=== PATIENT | female | born 1935 | race Caucasian/White ===

== ENCOUNTER 2017-09-27 12:51 | Inpatient (IN) | payer MEDICARE, OTHER, MEDICAID ==
[2017-09-27 14:08] LABS: ADD MAN DIFF? NO
[2017-09-27] MEDS: CEFEPIME 2GM/50 ML (PMX) 50 ML IVPB (14:10)
[2017-09-27 14:11] LABS: BASOPHILS % 0.3 % (0.0-2.0); HEMATOCRIT 36.8 % (37.0-47.0); LYMPHOCYTES # 1.4 10^3/ul (0.8-2.9); LYMPHOCYTES % 19.5 % (15.0-51.0); MEAN CORPUSCULAR HEMOGLOBIN 27.2 pg (29.0-33.0); MEAN CORPUSCULAR HGB CONC 32.6 g/dl (32.0-37.0); MEAN CORPUSCULAR VOLUME 83.4 fl (82.0-101.0); MEAN PLATELET VOLUME 11.7 fl (7.4-10.4); MONOCYTE # 0.4 10^3/ul (0.3-0.9); MONOCYTES % 6.2 % (0.0-11.0); NEUTROPHIL # 5.3 10^3/ul (1.6-7.5); NEUTROPHILS % 73.7 % (39.0-77.0); PLATELET COUNT 202 10^3/UL (140-415); RED BLOOD COUNT 4.41 10^6/ul (4.20-5.40); RED CELL DISTRIBUTION WIDTH 15.8 % (11.5-14.5)
[2017-09-27 14:11] LABS: WHITE BLOOD COUNT 7.1 10^3/ul (4.8-10.8)
[2017-09-27] MEDS: SODIUM CHLORIDE 0.9% 1L BAG IV* (14:15)
[2017-09-27 14:31] LABS: ALANINE AMINOTRANSFERASE 28 IU/L (13-69); ALBUMIN 3.6 g/dl (3.3-4.9); ALBUMIN/GLOBULIN RATIO 1.05; ALKALINE PHOSPHATASE 58 IU/L (42-121); ANION GAP 17 (8-16); ASPARTATE AMINO TRANSFERASE 31 IU/L (15-46); BILIRUBIN,INDIRECT 0.1 mg/dl (0-1.1); BILIRUBIN,TOTAL 0.1 mg/dl (0.2-1.3); BLOOD UREA NITROGEN 17 mg/dl (7-20); CALCIUM 8.8 mg/dl (8.4-10.2); CARBON DIOXIDE 24 mmol/L (21-31); CHLORIDE 100 mmol/L (97-110); CREATININE 0.69 mg/dl (0.44-1.00); GLUCOSE 117 mg/dl (70-220); POTASSIUM 3.2 mmol/L (3.5-5.1); SODIUM 138 mmol/L (135-144)
[2017-09-27 14:34] LABS: LACTIC ACID 2.5 mmol/L (0.5-2.0)
[2017-09-27 14:34] LABS: INR 0.99; PROTIME 13.2 Sec (11.9-14.9)
[2017-09-27 14:35] LABS: PARTIAL THROMBOPLASTIN TIME 40.3 Sec (25.0-35.0)
[2017-09-27 14:39] LABS: ADD UMIC YES; UR AMORPHOUS CRYSTAL FEW /HPF (NONE SEEN); UR ASCORBIC ACID NEGATIVE (NEGATIVE); UR BACTERIA FEW /HPF (NONE SEEN); UR BILIRUBIN (Dip) NEGATIVE (NEGATIVE); UR BLOOD (Dip) 2+ mg/dL (NEGATIVE); UR CLARITY SLIGHTLY CLOUDY (CLEAR); UR COLOR YELLOW (YELLOW); UR GLUCOSE (Dip) NEGATIVE (NEGATIVE); UR KETONES (Dip) NEGATIVE (NEGATIVE); UR LEUKOCYTE ESTERASE (Dip) NEGATIVE Leu/ul (NEGATIVE); UR NITRITE (Dip) NEGATIVE (NEGATIVE); UR RBC 40 /HPF (0-5); UR SPECIFIC GRAVITY (Dip) 1.013 (1.003-1.030); UR TOTAL PROTEIN (Dip) 1+ mg/dl (NEGATIVE); UR UROBILINOGEN (Dip) NEGATIVE (NEGATIVE); UR WBC 2 /HPF (0-5)
[2017-09-27 14:42] LABS: TROPONIN-I < 0.012 ng/ml (0.00-0.12)
[2017-09-27] MEDS: VANCOMYCIN 1 GM (PMX) 250 ML IVPB (15:39)
[2017-09-27 16:43] LABS: LACTIC ACID 2.7 mmol/L (0.5-2.0)
[2017-09-27] MEDS: SOD CHLORIDE 0.9% 1,000 ML IV (17:31)
[2017-09-27] MEDS: LACTATED RINGER'S 1,000 ML IV (17:38)
[2017-09-27] MEDS ORDERED: DOCUSATE SODIUM 100 MG CAP PO (18:00)
[2017-09-27] MEDS ORDERED: NA PHOSPHATE/BIPHOS 133 ML ENEMA PR (18:00)
[2017-09-27] MEDS ORDERED: NACL 0.9% 3 ML SYG IV (18:00)
[2017-09-27] MEDS ORDERED: HYDROCODONE/APAP (5/325) TAB PO (18:00)
[2017-09-27] MEDS ORDERED: ONDANSETRON 4 MG INJ IV (18:00)
[2017-09-27] MEDS ORDERED: hydrALAzine 20 MG INJ IV (18:00)
[2017-09-27] MEDS ORDERED: LORAZEPAM 2 MG INJ IV (18:00)
[2017-09-27] MEDS ORDERED: MAGNESIUM HYDROXIDE 30ML CUP PO (18:00)
[2017-09-27] MEDS ORDERED: ACETAMINOPHEN 325 MG TAB PO ×2 (18:00)
[2017-09-27] MEDS ORDERED: morphine 2 MG INJ IV (18:00)
[2017-09-27] MEDS ORDERED: NITROGLYCERIN (SL) 0.4 MG TAB SL (18:00)
[2017-09-27] MEDS ORDERED: GLUCAGON 1 MG INJ IM (19:30)
[2017-09-27] MEDS ORDERED: GLUCOSE GEL 15 GRAM TUBE PO ×2 (19:30)
[2017-09-27] MEDS ORDERED: DEXTROSE 50% 50 ML SYRINGE IV ×2 (19:30)
[2017-09-27] MEDS ORDERED: GLUCOSE GEL 15 GRAM TUBE BUCCAL (19:30)
[2017-09-27] MEDS: SOD CHLORIDE 0.45% 1,000 ML IV (19:42)
[2017-09-27 19:50] LABS: LACTIC ACID 2.2 mmol/L (0.5-2.0)
[2017-09-27 20:03] LABS: FREE T4 (FREE THYROXINE) 1.62 ng/dl (0.85-1.93)
[2017-09-27] MEDS: OSELTAMIVIR 75 MG CAP PO (20:15)
[2017-09-27] MEDS: HEPARIN 5,000 UNIT/0.5 ML VIAL SC (20:17)
[2017-09-27] MEDS: INSULIN ASPART [NOVOLOG] 3 ML PEN SC (20:22)
[2017-09-27 23:05] LABS: LACTIC ACID 2.5 mmol/L (0.5-2.0)
[2017-09-28] MEDS: INSULIN ASPART [NOVOLOG] 3 ML PEN SC ×6 (01:17→21:15)
[2017-09-28] MEDS: ACCU-CHEK XX (02:00)
[2017-09-28 02:38] LABS: LACTIC ACID 1.8 mmol/L (0.5-2.0)
[2017-09-28 06:47] LABS: ADD MAN DIFF? NO
[2017-09-28 06:48] LABS: WHITE BLOOD COUNT 4.8 10^3/ul (4.8-10.8)
[2017-09-28 06:48] LABS: BASOPHILS % 0.2 % (0.0-2.0); EOSINOPHILS % 0.8 % (0.0-7.0); HEMATOCRIT 32.2 % (37.0-47.0); HEMOGLOBIN 10.4 g/dl (12.0-16.0); LYMPHOCYTES # 1.6 10^3/ul (0.8-2.9); LYMPHOCYTES % 32.5 % (15.0-51.0); MEAN CORPUSCULAR HEMOGLOBIN 27.4 pg (29.0-33.0); MEAN CORPUSCULAR HGB CONC 32.3 g/dl (32.0-37.0); MEAN CORPUSCULAR VOLUME 84.7 fl (82.0-101.0); MEAN PLATELET VOLUME 11.3 fl (7.4-10.4); MONOCYTE # 0.3 10^3/ul (0.3-0.9); MONOCYTES % 6.3 % (0.0-11.0); NEUTROPHIL # 2.9 10^3/ul (1.6-7.5); PLATELET COUNT 163 10^3/UL (140-415); RED CELL DISTRIBUTION WIDTH 15.6 % (11.5-14.5)
[2017-09-28 07:15] LABS: LACTIC ACID 1.3 mmol/L (0.5-2.0)
[2017-09-28 07:17] LABS: ANION GAP 12 (8-16); BLOOD UREA NITROGEN 14 mg/dl (7-20); CALCIUM 8.3 mg/dl (8.4-10.2); CARBON DIOXIDE 28 mmol/L (21-31); CHLORIDE 104 mmol/L (97-110); CREATININE 0.51 mg/dl (0.44-1.00); GLUCOSE 121 mg/dl (70-220); MAGNESIUM 1.5 mg/dl (1.7-2.5); PHOSPHORUS 3.7 mg/dl (2.5-4.9); POTASSIUM 3.3 mmol/L (3.5-5.1); SODIUM 141 mmol/L (135-144)
[2017-09-28 07:18] LABS: CHOLESTEROL 93 mg/dl (100-200)
[2017-09-28 07:18] LABS: CHOL/HDL RATIO 3.4 RATIO; HDL CHOLESTEROL 27 mg/dl (33-92); LDL CHOLESTEROL,CALCULATED 43 mg/dl; TRIGLYCERIDES 116 mg/dl (0-149)
[2017-09-28 08:06] LABS: HEMOGLOBIN A1C 5.2 % (0-5.9)
[2017-09-28 08:21] LABS: LACTIC ACID 1.2 mmol/L (0.5-2.0)
[2017-09-28] MEDS: SOD CHLORIDE 0.45% 1,000 ML IV ×2 (08:21→20:53)
[2017-09-28] MEDS: OSELTAMIVIR 75 MG CAP PO ×2 (09:36→20:52)
[2017-09-28] MEDS: DONEPEZIL 10 MG TAB PO (09:36)
[2017-09-28] MEDS: HEPARIN 5,000 UNIT/0.5 ML VIAL SC ×2 (09:37→20:53)
[2017-09-28 12:08] LABS: LACTIC ACID 3.8 mmol/L (0.5-2.0)
[2017-09-28] MEDS: POTASSIUM CHLORIDE (SR) 20 MEQ TAB PO (13:48)
[2017-09-28] MEDS: MAGNESIUM SULFATE 2 GM/50 ML 50 ML IVPB (13:48)
[2017-09-28 15:19] LABS: LACTIC ACID 2.2 mmol/L (0.5-2.0)
[2017-09-28 16:10] LABS: LACTIC ACID 1.6 mmol/L (0.5-2.0)
[2017-09-28 18:07] LABS: LACTIC ACID 1.1 mmol/L (0.5-2.0)
[2017-09-28] MEDS: ALBUTEROL/IPRATROPIUM (NEB) 3 ML AMP HHN (21:04)
[2017-09-28] MEDS: GUAIFENESIN/CODEINE 5ML CUP PO (21:17)
[2017-09-28 22:57] LABS: LACTIC ACID 2.6 mmol/L (0.5-2.0)
[2017-09-29] MEDS: INSULIN ASPART [NOVOLOG] 3 ML PEN SC ×6 (01:00→21:16)
[2017-09-29 01:58] LABS: LACTIC ACID 1.6 mmol/L (0.5-2.0)
[2017-09-29] MEDS: ACCU-CHEK XX (02:00)
[2017-09-29 08:17] LABS: ADD MAN DIFF? NO
[2017-09-29 08:33] LABS: BASOPHILS % 0.2 % (0.0-2.0); EOSINOPHILS # 0.1 10^3/ul (0.0-0.5); EOSINOPHILS % 1.9 % (0.0-7.0); HEMATOCRIT 29.2 % (37.0-47.0); HEMOGLOBIN 9.6 g/dl (12.0-16.0); LYMPHOCYTES # 1.9 10^3/ul (0.8-2.9); LYMPHOCYTES % 44.8 % (15.0-51.0); MEAN CORPUSCULAR HEMOGLOBIN 27.6 pg (29.0-33.0); MEAN CORPUSCULAR HGB CONC 32.9 g/dl (32.0-37.0); MEAN CORPUSCULAR VOLUME 83.9 fl (82.0-101.0); MEAN PLATELET VOLUME 11.4 fl (7.4-10.4); MONOCYTE # 0.4 10^3/ul (0.3-0.9); MONOCYTES % 8.9 % (0.0-11.0); NEUTROPHIL # 1.9 10^3/ul (1.6-7.5); NEUTROPHILS % 43.7 % (39.0-77.0); PLATELET COUNT 186 10^3/UL (140-415); RED BLOOD COUNT 3.48 10^6/ul (4.20-5.40)
[2017-09-29 08:33] LABS: WHITE BLOOD COUNT 4.3 10^3/ul (4.8-10.8)
[2017-09-29 08:48] LABS: ANION GAP 10 (8-16); BLOOD UREA NITROGEN 14 mg/dl (7-20); CALCIUM 7.9 mg/dl (8.4-10.2); CARBON DIOXIDE 29 mmol/L (21-31); CHLORIDE 104 mmol/L (97-110); CREATININE 0.57 mg/dl (0.44-1.00); GLUCOSE 117 mg/dl (70-220); POTASSIUM 3.8 mmol/L (3.5-5.1); SODIUM 139 mmol/L (135-144)
[2017-09-29 08:55] LABS: LACTIC ACID 1.1 mmol/L (0.5-2.0)
[2017-09-29] MEDS: OSELTAMIVIR 75 MG CAP PO ×2 (08:56→21:13)
[2017-09-29] MEDS: DONEPEZIL 10 MG TAB PO (08:56)
[2017-09-29] MEDS: HEPARIN 5,000 UNIT/0.5 ML VIAL SC ×2 (08:59→21:16)
[2017-09-29 15:30] LABS: LACTIC ACID 1.5 mmol/L (0.5-2.0)
[2017-09-29] MEDS: ONDANSETRON 4 MG INJ IV (17:45)
[2017-09-29] MEDS ORDERED: GLUCOSE GEL 15 GRAM TUBE BUCCAL (22:30)
[2017-09-29] MEDS ORDERED: GLUCAGON 1 MG INJ IM (22:30)
[2017-09-29] MEDS ORDERED: DEXTROSE 50% 50 ML SYRINGE IV ×2 (22:30)
[2017-09-29] MEDS ORDERED: GLUCOSE GEL 15 GRAM TUBE PO ×2 (22:30)
[2017-09-30] MEDS: ACCU-CHEK XX (02:00)
[2017-09-30] MEDS: INSULIN ASPART [NOVOLOG] 3 ML PEN SC ×4 (08:00→21:00)
[2017-09-30] MEDS: DONEPEZIL 10 MG TAB PO (09:24)
[2017-09-30] MEDS: OSELTAMIVIR 75 MG CAP PO ×2 (09:24→21:07)
[2017-09-30] MEDS: HEPARIN 5,000 UNIT/0.5 ML VIAL SC ×2 (09:31→21:09)
[2017-09-30 10:57] LABS: WHITE BLOOD COUNT 3.5 10^3/ul (4.8-10.8)
[2017-09-30 10:57] LABS: HEMATOCRIT 29.4 % (37.0-47.0); HEMOGLOBIN 9.8 g/dl (12.0-16.0); MEAN CORPUSCULAR HEMOGLOBIN 27.7 pg (29.0-33.0); MEAN CORPUSCULAR HGB CONC 33.3 g/dl (32.0-37.0); MEAN CORPUSCULAR VOLUME 83.1 fl (82.0-101.0); MEAN PLATELET VOLUME 12.6 fl (7.4-10.4); PLATELET COUNT 128 10^3/UL (140-415); RED BLOOD COUNT 3.54 10^6/ul (4.20-5.40); RED CELL DISTRIBUTION WIDTH 14.7 % (11.5-14.5)
[2017-09-30 11:00] LABS: POSITIVE DIFF @See below
[2017-09-30 11:02] LABS: ADD MAN DIFF? YES
[2017-09-30 11:17] LABS: ANION GAP 14 (8-16); BLOOD UREA NITROGEN 13 mg/dl (7-20); CALCIUM 8.4 mg/dl (8.4-10.2); CARBON DIOXIDE 29 mmol/L (21-31); CHLORIDE 102 mmol/L (97-110); CREATININE 0.57 mg/dl (0.44-1.00); GLUCOSE 221 mg/dl (70-220); POTASSIUM 3.5 mmol/L (3.5-5.1); SODIUM 141 mmol/L (135-144)
[2017-09-30 12:52] LABS: ANISOCYTOSIS 2+ (0-0); BAND NEUTROPHILS % (M) 2 % (0-4); BASOPHILS % (M) 1 % (0-2); EOSINOPHILS % (M) 2 % (0-7); GIANT THROMBO% (M) 3 % (0-0); LYMPHOCYTES #M 1.7 10^3/ul (0.8-2.9); LYMPHOCYTES % (M) 51 % (15-51); METAMYELOCYTES %M 1 % (0-0); MICROCYTOSIS 2+ (0-0); MONOCYTE #M 0.3 10^3/ul (0.3-0.9); MONOCYTES % (M) 9 % (0-11); PLATELET ESTIMATE DECREASED; POIKILOCYTOSIS 1+ (0-0); REACTIVE LYMPHOCYTES% (M) 2 % (0-0); SEG NEUT #M 1.1 10^3/ul (1.6-7.5); SEGMENTED NEUTROPHILS (M) % 32 % (39-77); SMUDGE%M 18 % (0-0)
[2017-10-01] MEDS: ACCU-CHEK XX (01:06)
[2017-10-01 06:55] LABS: WHITE BLOOD COUNT 4.9 10^3/ul (4.8-10.8)
[2017-10-01 06:55] LABS: HEMATOCRIT 29.7 % (37.0-47.0); HEMOGLOBIN 9.8 g/dl (12.0-16.0); MEAN CORPUSCULAR HEMOGLOBIN 27.5 pg (29.0-33.0); MEAN CORPUSCULAR VOLUME 83.2 fl (82.0-101.0); MEAN PLATELET VOLUME 11.2 fl (7.4-10.4); PLATELET COUNT 234 10^3/UL (140-415); RED BLOOD COUNT 3.57 10^6/ul (4.20-5.40); RED CELL DISTRIBUTION WIDTH 14.6 % (11.5-14.5)
[2017-10-01 06:59] LABS: ADD MAN DIFF? YES; POSITIVE DIFF @See below
[2017-10-01 07:19] LABS: ANION GAP 11 (8-16); BLOOD UREA NITROGEN 14 mg/dl (7-20); CALCIUM 8.2 mg/dl (8.4-10.2); CARBON DIOXIDE 31 mmol/L (21-31); CHLORIDE 104 mmol/L (97-110); CREATININE 0.57 mg/dl (0.44-1.00); GLUCOSE 120 mg/dl (70-220); POTASSIUM 3.5 mmol/L (3.5-5.1); SODIUM 142 mmol/L (135-144)
[2017-10-01] MEDS: INSULIN ASPART [NOVOLOG] 3 ML PEN SC ×2 (07:53→11:56)
[2017-10-01] MEDS: DONEPEZIL 10 MG TAB PO (08:37)
[2017-10-01] MEDS: OSELTAMIVIR 75 MG CAP PO (08:37)
[2017-10-01] MEDS: HEPARIN 5,000 UNIT/0.5 ML VIAL SC (08:42)
[2017-10-01 09:22] LABS: ANISOCYTOSIS 3+ (0-0); BAND NEUTROPHILS % (M) 1 % (0-4); EOSINOPHILS % (M) 3 % (0-7); LYMPHOCYTES #M 2.4 10^3/ul (0.8-2.9); LYMPHOCYTES % (M) 49 % (15-51); MICROCYTOSIS 3+ (0-0); MONOCYTE #M 0.4 10^3/ul (0.3-0.9); MONOCYTES % (M) 10 % (0-11); PLATELET ESTIMATE NORMAL; POIKILOCYTOSIS 1+ (0-0); POLYCHROMASIA 1+ (0-0); SEG NEUT #M 1.8 10^3/ul (1.6-7.5); SEGMENTED NEUTROPHILS (M) % 37 % (39-77); SMUDGE%M 6 % (0-0)
== END 2017-10-01 14:35 | disposition home or self-care (01) | DRG 195 ==
LOC: PP2 09-30 10:44 → E/R 12:51 → PP2 18:29 → MS4 17:31
DX: J10.1 Influenza due to other identified influenza virus with other respiratory manifestations (principal); J44.9 Chronic obstructive pulmonary disease, unspecified; F03.90 Unspecified dementia, unspecified severity, without behavioral disturbance, psychotic disturbance, mood disturbance, and anxiety; E11.9 Type 2 diabetes mellitus without complications; I10 Essential (primary) hypertension; Z79.84 Long term (current) use of oral hypoglycemic drugs
CPT/HCPCS: 36415; 71045; 80048; 80053; 80061; 81001; 82962; 83036; 83605; 83735; 84100; 84439; 84443; 84484; 85025; 85610; 85730; 87040; 87086; 87400; 92610; 93306; 94664; 96374; 96375; 97162; 97166; 99291-25